=== PATIENT | female | born 1985 | race Caucasian/White ===

== ENCOUNTER → 2021-02-15 11:01 | Outpatient (CLI) | payer OTHER, MEDICAID, SELFPAY ==
[2021-02-15 13:09] LABS: COVID19 -Nasal RAPID Negative (Negative)
== END ==
PROVIDERS: Visit Provider Physician Assistant
DX: R50.9 Fever, unspecified (principal); Z20.822 Contact with and (suspected) exposure to COVID-19
CPT/HCPCS: 87635